=== PATIENT | male | born 1935 | race Caucasian/White ===

== ENCOUNTER 2016-03-08 17:33 | Inpatient (IN) | payer OTHER ==
[~2016-03-08] VITALS: Ht 170.2 cm; Wt 55.1 kg
[~2016-03-08 17:33] MED LIST: ADULT LOW DOSE81 M1 PO; ALEVE220 MG PO; ALLEGRA60 MG PO; AMBIEN5 MG PO; ATARAX,VISTARIL25 MG PO; BENTYL20 MG PO; CEFTIN500 MG PO; CO Q-10200 MG PO; CO Q-1050 MG PO; Chronulac,Cephulac,E PO; FERROUS SULFAT134 MG PO; FERROUS SULFAT325 MG PO; FERROUS SULFATE; FLOMAX0.4 MG PO; FLONASE16 G1 BOTH NARES; FLUTICASONE P15.8 ML BOTH NARES; FORTAMET500 M1 PO; FUROSEMIDE40 MG PO; GLIPIZIDE ER2.5 MG PO; GLUCOPHAGE1000 MG PO; HYDROCHLOROTH12.5 M3 PO; Humulin R SC; IRON325 M1 PO; KAYEXALATE453.6 GM PO; LACTULOSE10 GM/151 PO; LASIX20 MG PO; LASIX40 MG PO; LEVAQUIN500 MG PO; METFORMIN HCL1000 MG PO; METOPROLOL TART25 MG PO; MIDODRINE HCL5 MG PO; NITROGLYCERIN0.4 MG SL; NITROSTAT0.4 MG SL; NOVOLIN,HU100 UNITS/ SC; NOVOLOG MI100 UNIT/4 SC; NOVOLOG MI100 UNIT/M SC; OCEAN NASAL 0.645 ML BOTH NARES; OMEGA-31000 M1 PO; OMEPRAZOLE40 M1 PO; OMNICEF300 MG PO; PRAVASTATIN SOD20 MG PO; PRAVASTATIN SOD40 MG PO; PRAVASTATIN SOD80 MG PO; PREDNISONE10 MG PO; PREVACID30 MG PO; PROTONIX20 MG PO; PROTONIX40 MG PO; QUINAPRIL HCL20 MG PO; QUINAPRIL HCL40 MG PO; SLEEPING PILL; SPIRONOLACTONE25 MG PO; SYMBICORT60 INHALA1 IH; SYMBICORT60 INHALAT IH; TAMSULOSIN HCL0.4 MG PO; Theragran W/Iron,MVI PO; VENTOLIN HFA18 GM IH; VITAMIN B-121000 MC1 SL; ZINC50 M2 PO
[2016-03-08 18:37] LABS: HEMATOCRIT 33.6 % (38.0-50.0); MCH 28.5 PG (29.0-34.0); MCHC 33.3 G/DL (30.0-36.0); MCV 85.5 FL (86-99); RBC DIS.WIDTH-CV 14.7 % (11.8-14.6); RBC DIS.WIDTH-SD 44.6 % (39-53)
[2016-03-08 18:38] LABS: PLATELET COUNT 149 K/uL (156-360); RED BLOOD COUNT 3.93 M/uL (4.00-5.50); WHITE BLOOD COUNT 6.5 K/uL (4.1-10.2)
[2016-03-08 18:45] LABS: CHLORIDE 98 MEQ/L (99-109); SODIUM 125 MEQ/L (136-147)
[2016-03-08 18:47] LABS: GLUCOSE 180 mg/dL (70-99)
[2016-03-08 18:48] LABS: POTASSIUM 6.7 MEQ/L (3.7-5.4)
[2016-03-08 18:52] LABS: UREA NITROGEN (BUN) 63 mg/dL (9-23)
[2016-03-08 19:12] LABS: ALKALINE PHOSPHATASE 394 IU/L (3-129); GFR ESTIMATE (CALCULATED) 18 mL/min/
[2016-03-08 19:17] LABS: TOTAL BILIRUBIN 1.6 mg/dL (0.0-1.0)
[2016-03-08] MEDS ORDERED: MIDODRINE HCL5 MG PO (19:39)
[2016-03-08 21:58] VITALS: BP 120/64
[2016-03-09 00:51] VITALS: BP 120/67
[2016-03-09 01:02] LABS: POINT-OF-CARE METER ID UU13113698
[2016-03-09 01:12] LABS: CHLORIDE 97 mEq/L (99-109); POTASSIUM 5.6 mEq/L (3.7-5.4); SODIUM 127 mEq/L (136-147)
[2016-03-09 01:14] LABS: GLUCOSE 225 mg/dL (70-99)
[2016-03-09 01:15] LABS: ANION GAP 15 MEQ/L (2-14)
[2016-03-09 01:18] LABS: GFR ESTIMATE (CALCULATED) 18 mL/min/
[2016-03-09 01:19] LABS: UREA NITROGEN (BUN) 67 mg/dL (9-23)
[2016-03-09 04:40] VITALS: BP 115/57
[2016-03-09 06:43] LABS: POINT-OF-CARE METER ID UU13113698
[2016-03-09 06:58] LABS: HEMATOCRIT 30.2 % (38.0-50.0); MCH 28.2 PG (29.0-34.0); MCHC 33.4 G/DL (30.0-36.0); MCV 84.4 FL (86-99); MEAN PLAT.VOLUME 9.5 uM^3 (9.0-12.4); PLATELET COUNT 132 K/uL (156-360); RBC DIS.WIDTH-CV 14.8 % (11.8-14.6); RBC DIS.WIDTH-SD 45.7 % (39-53); RED BLOOD COUNT 3.58 M/uL (4.00-5.50); WHITE BLOOD COUNT 4.6 K/uL (4.1-10.2)
[2016-03-09 07:13] LABS: EOSINOPHIL (%) 0 % (0-5); IMMATURE GRANULOCYTE (%) 0.2 % (0.0-0.7); LYMPHOCYTE COUNT 0.3 K/uL (1.0-2.8); MONOCYTE COUNT 0.1 K/uL (0-0.8); NEUTROPHIL (%) 90.1 % (45-76); NEUTROPHIL COUNT 4.1 K/uL (1.8-6.4)
[2016-03-09 07:26] LABS: ALKALINE PHOSPHATASE 308 IU/L (3-129); ANION GAP 18 MEQ/L (2-14); CHLORIDE 93 MEQ/L (99-109); DIRECT BILIRUBIN 0.7 mg/dL (0.0-0.3); GFR ESTIMATE (CALCULATED) 20 mL/min/; GLUCOSE 286 mg/dL (70-99); POTASSIUM 4.8 MEQ/L (3.7-5.4); SAMPLE HEMOLYSIS CHECK 0; SAMPLE ICTERIC CHECK 0; SAMPLE LIPEMIA CHECK 0; SODIUM 125 MEQ/L (136-147); TOTAL BILIRUBIN 1.4 MG/DL (0.0-1.0); UREA NITROGEN (BUN) 66 mg/dL (9-23)
[2016-03-09 09:19] VITALS: BP 111/62
[2016-03-09 10:31] LABS: COLOR RED ((YELLOW)); LEUKOCYTES SMALL; NITRITE NEGATIVE; PROTEIN (STRIP) 30
[2016-03-09 10:32] LABS: ADD MIUA? YES; BILIRUBIN NEGATIVE; BLOOD LARGE; GLUCOSE (STRIP) NEGATIVE; KETONES TRACE; UROBILINOGEN 0.2 MG/DL (0.2-1.0)
[2016-03-09 10:36] LABS: BACTERIA 1+; CASTS PRESENT /LPF; CRYSTALS NONE SEEN; EPITHELIAL CELLS NONE SEEN; HYALINE CASTS 0-5 /LPF; MUCUS NONE SEEN; RED BLOOD CELLS TNTC /HPF (0-5); UCUL ADDED? NO
[2016-03-09 11:24] LABS: POINT-OF-CARE METER ID UU14174216
== END 2016-03-10 03:10 | DRG 432 ==
LOC: EME 17:33 → 4EAST 20:32 → EDOF 20:32 → 4EAST 21:57 → 5EAST 03-09 19:01
PROVIDERS: Emergency Medicine; Family Medicine; Hospitalist; Internal Medicine
DX: K74.69 Other cirrhosis of liver (principal); N17.9 Acute kidney failure, unspecified; J96.01 Acute respiratory failure with hypoxia; E87.2 Acidosis; R64 Cachexia; I85.00 Esophageal varices without bleeding; R18.8 Other ascites; J90 Pleural effusion, not elsewhere classified; Z68.1 Body mass index [BMI] 19.9 or less, adult; E87.1 Hypo-osmolality and hyponatremia; N18.4 Chronic kidney disease, stage 4 (severe); E11.21 Type 2 diabetes mellitus with diabetic nephropathy; D69.6 Thrombocytopenia, unspecified; I12.9 Hypertensive chronic kidney disease with stage 1 through stage 4 chronic kidney disease, or unspecified chronic kidney disease; E87.5 Hyperkalemia; R53.83 Other fatigue; E78.5 Hyperlipidemia, unspecified; K21.9 Gastro-esophageal reflux disease without esophagitis; E11.22 Type 2 diabetes mellitus with diabetic chronic kidney disease; Z51.5 Encounter for palliative care; I25.119 Atherosclerotic heart disease of native coronary artery with unspecified angina pectoris; Z88.8 Allergy status to other drugs, medicaments and biological substances; Z66 Do not resuscitate; Z96.89 Presence of other specified functional implants
CPT/HCPCS: 71020; 76770; 80048; 80053; 80069; 80076; 81003; 82140; 82948; 85025; 85027; 93005; 94760; 94799; 99202; 99281; 99284; C9113; J0610; J1815; J2060; J2270; J2405; J7050; P9047